=== PATIENT | female | born 1960 ===

== ENCOUNTER → 2018-08-17 | Outpatient (CLI) | payer MEDICARE ==
[~2018-08-17] MED LIST: AMLO5 PO; CYCL10 PO; FENT50TP TOP; HYDACE10B PO; LEVSOD50 PO; LEVSOD75 PO; OXYACE5T PO; PREG75 PO; PROC10 PO
[2018-08-17 20:21] LABS: Free Thyroxine 0.34 ng/dL (0.70-1.60)
== END ==
LOC: LAB SHORT 18:45 → LAB 18:45
PROVIDERS: Family Medicine
DX: I10 Essential (primary) hypertension (principal)
CPT/HCPCS: 84439; 84443